=== PATIENT | male | born 1965 | race African-American/Black ===

== ENCOUNTER 2024-10-23 14:01 | Emergency (ER) | payer MEDICAID ==
[~2024-10-23] VITALS: Ht 180.3 cm; Wt 102.0 kg
[2024-10-23 14:05] VITALS: O2SAT 97
[2024-10-23 20:47] VITALS: BP 143/92; PULSE 85; RESP 19; TEMP 37; O2SAT 97
== END 2024-10-23 20:47 | disposition home or self-care (01) ==
LOC: ER 14:11
DX: M25.561 Pain in right knee (principal); I10 Essential (primary) hypertension
CPT/HCPCS: 99283; Z7610